=== PATIENT | male | born 1965 | race Caucasian/White ===

== ENCOUNTER 2018-03-13 06:09 | Emergency (ER) | payer OTHER ==
[~2018-03-13] VITALS: Ht 185.4 cm; Wt 104.3 kg
[~2018-03-13 06:09] MED LIST: ASPIR 8181 M1 PO; ASPIRIN325; COMBIGAN EYE DR10 ML OPHTHALMIC; FLOMAX0.4 MG PO; HYDROCODONE-AP1 EAC6 PO; IBUPROFEN 800800 M1 PO; LIPITOR 20 MG T20 M1 PO; LIPITOR10 MG; LIPITOR40 MG PO; LUMIGAN2.5 M1 OPHTHALMIC; NORCO 5-325 TA1 EAC1 PO; QUESTRAN POWDE378 GM PO; TAMSULOSIN HCL0.4 MG PO; VITAMIN D 5050000 I1; ZOFRAN ODT4 MG PO
[2018-03-13] MEDS ORDERED: AMOXICILLIN 50500 MG PO (06:25)
[2018-03-13 06:41] LABS: ABSOLUTE LYMPHOCYTES 1.3 thou/uL (0.8-5.3); ABSOLUTE MONOCYTES 0.4 thou/uL (0.0-1.2); ABSOLUTE NEUTROPHILS 5.6 thou/uL (1.6-8.1); BASOPHILS 0.6 %; EOSINOPHILS 0.5 %; HEMATOCRIT 37.8 % (42.0-52.0); HEMOGLOBIN 13.4 gm/dL (14.0-18.0); LYMPHOCYTES 17.2 %; MCHC 35.4 g/dL (28.0-37.0); MONOCYTES 5.7 %; MPV 8.7 fl. (7.2-11.1); NUCLEATED RBCS 0 /100WBC; PLATELET COUNT* 230 thou/uL (150-400); RBC 4.61 mil/uL (4.50-6.00); RDW-CV 14.2 % (10.5-14.5); WBC 7.4 thou/uL (4.0-11.0)
[2018-03-13 06:59] LABS: CALCIUM 9.1 mg/dL (8.5-10.1); CREATININE 1.3 mg/dL (0.6-1.3); POTASSIUM 4.3 mmol/L (3.5-5.1)
[2018-03-13 07:32] LABS: URINE BILIRUBIN NEGATIVE (Negative); URINE BLOOD 3+ (Negative); URINE CLARITY CLEAR; URINE COLOR YELLOW; URINE GLUCOSE-RANDOM NEGATIVE (Negative); URINE KETONES NEGATIVE (Negative); URINE LEUKOCYTES-REFLEX TRACE (Negative); URINE NITRITE-REFLEX NEGATIVE (Negative); URINE PROTEIN TRACE (Negative); URINE UROBILINOGEN 0.2 E.U./dl (0.2-1.0)
[2018-03-13 07:43] LABS: CASTS None Seen /LPF (None Seen); CRYSTALS None Seen /LPF (None Seen); SQUAMOUS 4-10 Moderate /LPF (0-3); URINE RBC >20 Many /HPF (0-2); URINE WBC-REFLEX 0-5 Rare /HPF (0-5)
[2018-03-13 07:44] LABS: BACTERIA-REFLEX 1-9 Few /HPF (None Seen)
[2018-03-13] MEDS ORDERED: CIPROFLOXACIN500 M1 PO (07:49)
[2018-03-13] MEDS ORDERED: FLOMAX0.4 MG PO (07:49)
[2018-03-13] MEDS ORDERED: NORCO 5-325 TA1 EACH PO (07:49)
[2018-03-13 07:59] VITALS: BP 150/71
== END 2018-03-13 07:59 | disposition home or self-care (01) ==
LOC: M.ERS 06:09
PROVIDERS: Emergency Medicine
DX: N20.0 Calculus of kidney (principal); Z95.1 Presence of aortocoronary bypass graft

== ENCOUNTER 2018-03-16 10:33 | Emergency (ER) | payer OTHER ==
[~2018-03-16] VITALS: Ht 182.9 cm; Wt 90.7 kg
[~2018-03-16 10:33] MED LIST changes: +AMOXICILLIN 50500 MG PO; +CIPROFLOXACIN500 M1 PO; +NORCO 5-325 TA1 EACH PO
[2018-03-16 10:52] LABS: URINE BILIRUBIN NEGATIVE (Negative); URINE BLOOD 3+ (Negative); URINE CLARITY CLEAR; URINE COLOR YELLOW; URINE GLUCOSE-RANDOM NEGATIVE (Negative); URINE KETONES NEGATIVE (Negative); URINE LEUKOCYTES-REFLEX 1+ (Negative); URINE NITRITE-REFLEX NEGATIVE (Negative); URINE PROTEIN 1+ (Negative); URINE SPECIFIC GRAVITY 1.015 (1.005-1.030); URINE UROBILINOGEN 0.2 E.U./dl (0.2-1.0)
[2018-03-16 10:55] LABS: ABSOLUTE BASOPHILS 0.1 thou/uL (0.0-0.2); ABSOLUTE EOSINOPHILS 0.1 thou/uL (0.0-0.7); ABSOLUTE LYMPHOCYTES 0.9 thou/uL (0.8-5.3); ABSOLUTE MONOCYTES 0.4 thou/uL (0.0-1.2); ABSOLUTE NEUTROPHILS 4.9 thou/uL (1.6-8.1); BASOPHILS 0.9 %; EOSINOPHILS 1.4 %; HEMATOCRIT 36.6 % (42.0-52.0); HEMOGLOBIN 12.6 gm/dL (14.0-18.0); LYMPHOCYTES 14.3 %; MCH 28.8 pg (26.0-34.0); MCHC 34.5 g/dL (28.0-37.0); MCV 83.4 fL (80.0-100.0); MONOCYTES 6.7 %; MPV 8.5 fl. (7.2-11.1); NUCLEATED RBCS 0 /100WBC; PLATELET COUNT* 172 thou/uL (150-400); POLYS 76.7 %; RBC 4.38 mil/uL (4.50-6.00); RDW-CV 14.2 % (10.5-14.5); WBC 6.3 thou/uL (4.0-11.0)
[2018-03-16 11:27] LABS: SQUAMOUS 4-10 Moderate /LPF (0-3)
[2018-03-16 11:28] LABS: BACTERIA-REFLEX 1-9 Few /HPF (None Seen); MUCUS 0-3 Light strn/LPF (None Seen); URINE RBC >20 Many /HPF (0-2); URINE WBC-REFLEX 6-15 Few /HPF (0-5)
[2018-03-16 11:29] LABS: CASTS None Seen /LPF (None Seen); CRYSTALS None Seen /LPF (None Seen)
[2018-03-16 11:31] LABS: ALBUMIN 3.7 g/dL (3.4-5.0); CALCIUM 9.1 mg/dL (8.5-10.1); CREATININE 1.5 mg/dL (0.6-1.3); POTASSIUM 3.7 mmol/L (3.5-5.1); TOTAL BILIRUBIN 0.9 mg/dL (<0.1-1.0); TOTAL PROTEIN 7.3 g/dL (6.4-8.2)
[2018-03-16] MEDS ORDERED: BACTRIM DS TAB1 EACH PO (11:35)
[2018-03-16 11:40] VITALS: BP 137/81
== END 2018-03-16 11:45 | disposition home or self-care (01) ==
LOC: M.ERS 10:33
PROVIDERS: Physician Assistant
DX: N20.0 Calculus of kidney (principal); N39.0 Urinary tract infection, site not specified; Z95.1 Presence of aortocoronary bypass graft